=== PATIENT | male | born 1955 | race Caucasian/White ===

== ENCOUNTER 2023-05-25 15:20 | Inpatient (IN) | payer MEDICARE, SELFPAY ==
[2023-05-25] VITALS (16 sets, daily range): BP systolic 98–123; BP diastolic 61–78; PULSE 58–80; RESP 17–28; TEMP 36.6–36.9; O2SAT 94–99; BMI 34.7; BMI 38.0
--- NOTE | 2023-05-25 15:24 | ECG_ITS ---
[facility] Test Date: 2023-05-25 Pat Name: Fabrice Mercado Department: Room: 112 Gender: Male Management Expert: : 1955 Requested By: Effie Espinoza Order Number: [id number] Darline MD: Kunal Gottlieb M.D. Measurements Intervals [place] Rate: 77 P: 45 NE: 180 QRS: -34 QRSD: 173 T: -7 QT: 408 QTc: 463 Interpretive Statements SINUS RHYTHM WITH MARKED SINUS ARRHYTHMIA INDETERMINATE AXIS RIGHT BUNDLE BRANCH BLOCK [120+ ms QRS DURATION, UPRIGHT V1, 40+ ms S IN I/aVL/V4/V5/V6] Compared to ECG 04/01/2015 02:10:15 Indeterminate axis now present Right bundle-branch block now present Sinus bradycardia no longer present Intraventricular conduction delay no longer present Electronically Signed On 05-25-2023 19:01:07 OPERATIONS SUPPORT MANAGER by Kunal Gottlieb M.D. [email or web address]/store/[id number] f
--- NOTE | 2023-05-25 15:29 | W.ED.CHESTPA ---
HPI - Chest Pain General: Chief Complaint: Chest Pain Stated Complaint: STEMI Time Seen by Provider: 05/25/23 15:21 History of Present Illness: 67-year-old man with a history of obesity, hyperlipidemia and hypertension who presents to the emergency room by transfer from another hospital. He had been having some chest pain. He said he had an episode while he was out side chopping wood or he started feeling chest burning. He says today he started to have a burning in his chest and so he went to the emergency room. It was reported that he had a STEMI there and so he was transferred here for cardiology intervention. He has been given Plavix aspirin and statin. He was started on a heparin drip. He said nitro did not really help and made him sick. So has been given no more of that. Chest pain is minimal at this time. No lower extremity swelling. No known cardiac history. He is a non-smoker. Review of Systems Narrative: Constitutional symptoms: Negative except as documented in HPI. Skin symptoms: Negative except as documented in HPI. Eye symptoms: Negative except as documented in HPI. ENMT symptoms: Negative except as documented in HPI. Respiratory symptoms: Negative except as documented in HPI. Cardiovascular symptoms: Negative except as documented in HPI. Gastrointestinal symptoms: Negative except as documented in HPI. Genitourinary symptoms: Negative except as documented in HPI. Musculoskeletal symptoms: Negative except as documented in HPI. Neurologic symptoms: Negative except as documented in HPI. Psychiatric symptoms: Negative except as documented in HPI. Endocrine symptoms: Negative except as documented in HPI. [facility] ED PFSH: Medical History (Updated 05/25/23 @ 15:42 by Effie Rojo MD) HTN (hypertension) Family History Father Cancer Mother Diabetes Social History Smoking and tobacco/nicotine status: former use of tobacco/nicotine Physical Exam Narrative: EXAM NARRATIVE: General: Alert, no acute distress. Skin: Warm, dry. Head: Normocephalic, atraumatic. Neck: Supple, trachea midline. Eye: Extraocular movements are intact. Ears, nose, mouth and throat: mucosa moist. Cardiovascular: Regular, Normal peripheral perfusion. Respiratory: Lungs are clear to auscultation, respirations are non-labored, breath sounds are equal, Symmetrical chest wall expansion. Gastrointestinal: Soft, Nontender, Non distended, Normal bowel sounds. Musculoskeletal: Normal ROM, no deformity. Neurological: Alert and oriented to person, place, time, and situation, No focal neurological deficit observed. Psychiatric: Cooperative, appropriate mood & affect. Course Vital Signs: Vital signs: Vital Signs Temperature 98.3 F 05/25/23 15:28 Pulse Rate 68 05/25/23 15:35 Respiratory Rate 18 05/25/23 15:35 Blood Pressure 123/61 05/25/23 15:35 Pulse Oximetry 98 05/25/23 15:35 Oxygen Delivery Me thod Room Air 05/25/23 15:35 MDM - Chest Pain Medical Decision Making Patient presents by transfer. He has known elevated cardiac markers and EKG changes consistent with a STEMI. Chest pain has improved some. Repeating cardiac markers here. Consultation with cardiology who saw the patient in the emergency room and is taking the patient to the [facility]. Continue the heparin drip here. This is likely an acute coronary syndrome. Lab Data 05/25/23 15:30 05/25/23 15:30 No radiology studies performed this visit Discharge Plan Discharge Patient Disposition: Admitted As Inpatient Clinical Impression: ST elevation (STEMI) myocardial infarction Condition: Stable Prescriptions: No Action metoprolol succinate 100 mg tablet extended release 24 hr 100 mg PO DAILY ibuprofen [Advil] 200 mg tablet 200 mg PO Q6H PRN (Reason: Pain) cetirizine 10 mg capsule 10 mg PO DAILY PRN (Reason: allergies) valsartan-hydrochlorothiazide 160-12.5 mg tablet 1.5 tab PO DAILY Qty: 135 3RF Rx Instructions: patient did not want to change dose of med as BP has been ok at the same dose Referrals: Neel Gautam DO [Primary Care Provider] - Coding Level of Care Code ED Longshore Equipment Operator for Nichole Mustafa
--- NOTE | 2023-05-25 15:35 | PC.NURSE ---
HEPARIN HOLD PER QIANA.
--- NOTE | 2023-05-25 15:37 | XACV_ITS ---
Exam Room: 2 Ht: 183 cm Wt: 119 kg BSA: 2.50 m2 Gender: Male : 1955 Any Known Allergies: No known allergies Exam Priority: Routine Indication(s): - Acute inferior ID Procedure(s): Procedure Description: Diagnostic procedure Procedure Description: PCI procedure Procedure Description: Drug Eluting Coronary Stent Procedure Description: PTCA Procedure Description: Miscellaneous Procedure Description: ACT Procedure Description: Coronary Angiography Darrel JOYNER; Diagnostic Cath Status: Emergency Diagnostic Findings * INDICATION: 67 year old male with past medical history of hypertension was presented with severe substernal and epigastric heartburn. No prior cardiac history. He woke up with significant heartburn and had significant diaphoresis associated with it. This was about 10 hours prior to presentation but chest pain got much worse prior to ER presentation. Went to the emergency room in [facility]. EKG was transmitted to us and we emergently activated Rn Paralegal as patient has right bundle branch block with ST elevations in inferior leads. * Left Anterior Descending has mild luminal irregularities. * Mid Right Coronary Artery: total thrombotic occlusion, LAXMI: 0 flow. This is culprit vessel for ST elevation ID. Distal RCA has another moderate 50% stenosis.. * Proximal Circumflex: severe 75% stenosis, LAXMI: 3 flow. * Left Main has no disease. * First Obtuse Marginal Branch Segment: obstructive 70% stenosis, LAXMI: 3 flow. * Second Obtuse Marginal Branch Segment: obstructive 60% stenosis, LAXMI: 3 flow. * Coronary angiography shows right dominance. PCI Status: Emergency PCI Indication: Immediate PCI for STEMI Interventional Findings * PROCEDURE DETAIL: We engaged RCA with JR4 guide catheter. IV heparin was administered to maintain anticoagulation. 0.014 run-through guidewire was used to cross the occluded segment and was put in distal vessel. We predilated the stenosis with a 2.5 x 12 mm semicompliant balloon. This revealed significant thrombus throughout the vessel. Multiple balloon angioplasties were performed including in distal RCA where there was a moderate 50% stenosis as well. This cleared the thrombus. We then proceeded with placement of a 3.5 x 26 mm resolute Jennifer drug-eluting stent in the mid RCA. As distal RCA had moderate stenosis, we decided to treat medically. Guidewire and guide catheter were removed. Patient left the Rn Paralegal in stable condition. Patient has residual significant proximal left circumflex artery stenosis that will undergo staged PCI in 2-3 weeks. * Mid Right Coronary Artery: 100% stenosis treated with a AB TREK 2.50X12 RX BALLOON, and MDT R JENNIFER 3.5X26 KAYLEEN. 0% residual stenosis, LAXMI: 3 flow. * Distal Right Coronary Artery: 50% stenosis treated with a AB TREK 2.50X12 RX BALLOON. 0% residual stenosis, LAXMI: 3 flow. Conclusions 1. Total thrombotic occlusion of mid RCA s/p successful revascularization with 1 stent.. 2. Severe proximal left circumflex artery stenosis, plan for staged PCI in 2 to 3 weeks. 3. Mid Right Coronary Artery was treated with a Balloon, and Drug Eluting Stent. 4. Distal Right Coronary Artery was treated with a Balloon. Recommendations * Dual antiplatelet therapy with aspirin and Plavix for at least 1 year. * High intensity statin therapy. * Aggrastat gtt for 4 hours as has some distal embolization. * Outpatient cardiology follow in 2 weeks. * Staged PCI of left circumflex artery in 2-3 weeks. Interventional RX Recommendation: PCI w/o planned CABG Diagnostic RX Recommendation: PCI w/o planned CABG Anticoagulation: Heparin Pressures Phase:Rest AO : 105 / 84 ( 96 ) @ 4:07:00 PM 98 / 67 ( 80 ) @ 4:11:00 PM Clinical Evaluation EBL: 5mL-10mL Procedural Details Pre-Procedure Time Out. Identified patient by full name and date of as verbalized by the patient/guarantor. Does the consent match the physician's order: N/A Emergent; Informed Consent not obtained due to time critical life threat. Accurate & Complete Informed Consent: N/A Emergent; Informed Consent not obtained due to time critical life threat. Inpatient/Outpatient History & Physical on Chart: N/A Emergent; Informed Consent not obtained due to time critical life threat. If H&P is completed, is and addenduem needed: N/A Emergent; Informed Consent not obtained due to time critical life threat; If yes, is the addendum complete: N/A Emergent; Informed Consent not obtained due to time critical life threat. Visualize and Verify Site with Patient/Guarantor: N/A. Relevant Radiology Images available: N/A Emergent; Informed Consent not obtained due to time critical life threat. Pre-op teaching completed and patient verbalized understanding. The risks, benefits, and alternatives of sedation and/or procedure were discussed by physician. The patient agrees to continue. Procedure started. [facility] Clinical Fraility Score: 3: Managing Well. Rn Paralegal Indications: ACS <= 24 hours. Chest Pain Symptom Assessment: Typical Angina Symptoms. Cardiovascular Instability: Yes, if yes, Persistant Ischemic Symptoms. Correct patient, site and procedure confirmed by cath team. Current diagnosis: STEMI. PERRLA. Strong, equal hand shade classifier bilaterally. Lungs clear x 5 lobes. IV Site on Arrival: 18 gauge in the right anticubital. IV Site on Arrival: 18 gauge in the left anticubital. IV Fluids: 0.9% NaCl at KVO. 0 mL infused prior to laborer driver. Oxygen started at 2liters/min via nasal canula. right groin was prepped with chloroprep then draped in the usual sterile fashion. right radial was prepped with chloroprep then draped in the usual sterile fashion. Baseline sample Acquired. HR: 58 BPM. Physician notified. Patient's family in the laborer driver waiting room. Equipment: 6F - Radial. Cardiac Cath Pack. ACIST Manifold Kit Model BT 2000. Heparinized Saline (2 units/mL), 1000 mL bag. Physician arrived. Physician scrubbed in. Immediate Pre-Procedure Time Out. Correct Patient: N/A Emergent; Informed Consent not obtained due to time critical life threat; Correct Procedure: N/A Emergent; Informed Consent not obtained due to time critical life threat; Correct Site: N/A Emergent; Informed Consent not obtained due to time critical life threat; Correct Patient Position: N/A Emergent; Informed Consent not obtained due to time critical life threat; Correct Supplies: N/A Emergent; Informed Consent not obtained due to time critical life threat; Dried Flammable Prep: N/A Emergent; Informed Consent not obtained due to time critical life threat; Blood Products Available: N/A Emergent; Informed Consent not obtained due to time critical life threat;. Lidocaine 1% infiltrated to the right radial. Arterial access obtained. 6 italian JR 4 guide catheter was inserted over the exchange J wire. Add inventory: Endoflator, co-maritime pilot, Runthrough guidewire. Inflation number : 1 A AB TREK 2.50X12 RX BALLOON was prepped and advanced across the Mid RCA , then inflated to 12 ALISSA for 0:20 seconds. Inflation number: 2 The AB TREK 2.50X12 RX BALLOON was reinflated across the Mid RCA, to 12 ALISSA for 0:08 seconds. Results checked. Inflation number: 1 The AB TREK 2.50X12 RX BALLOON was reinflated across the Dist RCA, to 12 ALISSA for 0:08 seconds. Balloon out. Results checked. Inflation Number : 3 A MDFredy R JENNIFER 3.5X26 KAYLEEN -Lot Number# [id number] was prepped and advanced across the Mid RCA. The stent was deployed at 12 ALISSA for 0:17 seconds. Exp. 2024-01-30. Stent balloon out over wire. Results checked. ACT drawn. Out of range high. Will redraw. Wire out. Guide catheter out over the exchange J wire. Critical Troponin of 1079 received from the lab. Dr. Gottlieb notified with no new orders. A 5 italian TIG catheter in over the exchange J wire. Multiple views taken of left coronary artery. A 5 italian JR4 catheter in over the exchange J wire. Multiple views taken of right coronary artery. PCI Indication : Immediate PCI for STEMI. Catheter removed over the exchange J wire. ACT drawn. Results 275 seconds. Therapeutic limits - pre-heparin administration 90-150 seconds and monitoring heparin during a vascular procedure >250 seconds. A TR Band was successful obtaining hemostatsis at the Right Radial artery insertion site. Post Procedure: right radial pulse 3+. PERRLA. Strong, equal hand shade classifier bilaterally. No VTE prophylaxis required. Medication's Wasted: Other = Fentanyl 50 mcg. Medication's Wasted: Other = Versed 1 mg. Medication's Wasted: Nitro = 49.8 mg. Medication's Wasted: Lidocaine 1% = 2 mL. Medication's Wasted: Other = Cardene 24.5mg. Medication's Wasted: Heparin = 3000 Units. Total IV fluids: 270 mL. PCI Indication: STEMI. Post-op diagnosis: Severe mid RCA stenosis s/p PCI with PTCA of the distal RCA. Severe Proximal CX and OM1 disease. Will stage procedure for that intervention. Complications: none. Estimated blood loss: 5mL-10mL. Responsiveness - Normal response to verbal stimuli; alert and oriented, PERRLA. Airway - Unaffected, no intervention required; spontaneous ventilation. Circulation: W/N/L, pulses unchanged. Nausea/Vomiting: No. Vital chart was stopped. Procedure completed. Patient transferred by wheelchair to 1st floor. Access Site Site: Right Radial artery Sheath Size: 6 Fr Hemostasis Method: TR Band Hemostasis Success: Successful Procedure Medications Start: 3:54 PM Stop: 3:54 PM Medication: Versed Amount: 1 mg Route: I.V. Start: 3:54 PM Stop: 3:54 PM Medication: Fentanyl Amount: 50 mcg Route: I.V. Start: 3:57 PM Stop: 3:57 PM Medication: Heparin Amount: 6000 units Route: I.V. Start: 4:02 PM Stop: 4:02 PM Medication: Heparin Amount: 2000 units Route: I.V. Start: 4:03 PM Stop: 4:03 PM Medication: Nitrogylcerin Amount: 200 mcg Route: I.C. Start: 4:10 PM Stop: 4:10 PM Medication: Aggrastat 12.5 mg/250 mL Amount: 60 ml Route: I.V. bolus Start: 4:10 PM Stop: 4:10 PM Medication: Aggrastat 12.5 mg/250 mL Amount: 21.6 ml/hr Route: I.V. drip Start: 4:11 PM Stop: 4:11 PM Medication: Cardene Amount: 500 mcg Route: I.C. I, the attending physician, have reviewed and verified all procedure medications. Yes, all medications given per verbal order Report Signatures Finalized by Kunal Gottlieb MD on 05/29/2023 02:39 PM
[2023-05-25 15:40] LABS: Basophils % 0.3 %; Eosinophils % 0.3 %; Hematocrit 44.8 % (37-53); Lymphocytes # 1.1 10^3/uL (0.8-4.8); Lymphocytes % 9.8 %; Mean Corpuscular HGB Conc 33.7 g/dL (30-55); Mean Corpuscular Hemoglobin 30.7 pg (27-33); Mean Corpuscular Volume 91.1 fl (82-101); Mean Platelet Volume 10.8 fL (7.4-10.4); Monocytes % 8.7 %; Neutrophils # 9.17 10^3/uL (1.8-7.7); Neutrophils % 80.5 %; Nucleated Red Blood Cells % 0 %; Platelet Count 188 10^3/cmm (157-399); Red Blood Count 4.92 10^6/uL (3.85-5.65); White Blood Count 11.38 10^3/uL (3.29-11.43)
--- NOTE | 2023-05-25 15:41 | P.HP_ITS ---
Providers/Chief Complaint 2 Admitting Physician: Kunal Gottlieb MD/ Cardiology Primary Care Provider: Neel Gautam DO Chief Complaint: STEMI History of Present Illness Fabrice Mercado is a 67 year old male with past medical history of hypertension was presented with severe substernal and epigastric heartburn. No prior cardiac history. He woke up with significant heartburn and had significant diaphoresis associated with it. This was about 10 hours prior to presentation but chest pain got much worse prior to ER presentation. Went to the emergency room in [facility]. Initial troponins from outside hospital level of 492. EKG was transmitted to us and we emergently activated Dry Room Attendant as patient has right bundle branch block with ST elevations in inferior leads. Review of Systems 2 Narrative: CONSTITUTIONAL: No fever chills weight loss or gain or night sweats. [] HEENT: Normocephalic, atraumatic.[] RESPIRATORY: No cough, sputum, hemoptysis or wheezing.[] CARDIOVASCULAR: Has chest pain GI: no nausea vomiting diarrhea. [] BEAM DYER RECESSED VAT: No numbness, tingling, weakness or loss of function in any part of the body. [] MUSCULOSKELETAL: No knee or joint pain or rashes. [] Medications/Allergies Home Medications Medication Instructions Recorded Confirmed Last Taken Type cetirizine 10 mg capsule 10 mg PO DAILY PRN allergies 01/22/20 05/25/23 Unknown History ibuprofen 200 mg tablet (Advil) 200 mg PO Q6H PRN Pain 01/22/20 05/25/23 Unknown History metoprolol succinate 100 mg 100 mg PO DAILY 01/22/20 05/25/23 Unknown History tablet,extended release 24 hr valsartan 160 1.5 tab PO DAILY #135 tabs 09/04/20 05/25/23 Unknown Rx mg-hydrochlorothiazide 12.5 mg tablet Allergies Allergy/AdvReac Type Severity Reaction Status Date / Time No Known Allergies Allergy Verified 05/25/23 15:30 PFSH Acute 2 PFSH: Medical History HTN (hypertension) Family History Father Cancer Mother Diabetes Social History Smoking and tobacco/nicotine status: former use of tobacco/nicotine Vitals/I&O/Wt Last Vital Signs Temp 98.3 F 05/25/23 15:28 Pulse 68 05/25/23 15:35 Resp 18 05/25/23 15:35 BP 123/61 05/25/23 15:35 Pulse Ox 98 05/25/23 15:35 O2 Del Method Room Air 05/25/23 15:35 Weight last 48 hrs Weight 263 lb Physical Exam 2 Narrative: GENERAL: Patient is alert, awake and oriented x3. [] NECK: No jugular vein distension. [] HEENT: No cyanosis. No icterus. No pallor. [] HEART: Regular S1 and S2. No murmur, rub or gallop. [] LUNGS: Clear to auscultate bilaterally. [] CENTRAL NERVOUS SYSTEM: Grossly nonfocal. [] EXTREMITIES: Lower extremities with 1+ edema bilaterally. Data 05/25/23 15:30 05/25/23 15:30 A&P Assessment and plan (1) ST elevation (STEMI) myocardial infarction: (2) HTN (hypertension): Qualifiers: Hypertension type: essential hypertension Qualified Code(s): I10 - Essential (primary) hypertension Plan Patient has presented with acute inferior wall ST elevation ME. Cardiac Dry Room Attendant has been activated. Risks and benefits of procedure have been discussed with the patient. Aspirin, Plavix bolus given. IV heparin bolus given. We will order echocardiogram. Attestations 2 Medical Necessity Statement*: Care expected to cross 2 midnights. Patient has presented with Acute inferior wall ST elevation ME. Going to drop crew laborer for emergent coronary angiogram and PCI Coding Level of Care Code Acute Code for [facility] Diagnoses ST elevation (STEMI) myocardial infarction I21.3 Essential hypertension I10 Hypertension type: essential hypertension
--- NOTE | 2023-05-25 15:41 | PC.PHAR ---
PT UNABLE TO VERIFY MEDICATIONS. CALLED [facility] SPOKE WITH LUIS A AND VERIFIED RX MEDICATIONS. 05/25/23
[2023-05-25 16:07] LABS: Troponin(5th) Baseline 1079 ng/L (0-15)
[2023-05-25 16:36] LABS: Alanine Aminotransferase 47 U/L (0-41); Albumin Level 3.9 g/dL (3.5-5.2); Alkaline Phosphatase 71 U/L (40-130); Anion Gap 14.2 (5-19); Aspartate Amino Transferase 95 U/L (0-40); Blood Urea Nitrogen 14 mg/dL (8-23); Calcium 9.3 mg/dL (8.5-10.5); Carbon Dioxide 25 mmol/L (22-29); Chloride 100 mmol/L (98-107); Chol HDL Ratio 5.39 mg/dL (1.0-5.00); Cholesterol 167 mg/dL (0-200); Globulin 2.5 g/dL (1.3-4.6); Glomerular Filtration Rate 74.3 mL/min (90-130); Glucose 173 mg/dL (65-115); HDL Cholesterol 31 mg/dL (60-100); LDL Cholesterol Calculated 117 mg/dL (50-129); Osmolality Calculated 285 mOsm/kg (285-295); Potassium 4.2 mmol/L (3.5-5.1); Sodium 135 mmol/L (136-145); Total Bilirubin 0.5 mg/dL (0.15-1.2); Total Protein 6.4 g/dL (6.6-8.7); Triglycerides 96 mg/dL (0-150); VLDL Cholestrol Calculation 19 mg/dL (0-30)
--- NOTE | 2023-05-25 17:24 | ECG_ITS ---
[facility] Test Date: 2023-05-25 Pat Name: Fabrice Mercado Department: Room: 112 Gender: Male Jig Operator: : 1955 Requested By: Effie Espinoza Order Number: [id number] Gregorio MD: Kunal Gottlieb M.D. Measurements Intervals [place] Rate: 58 P: 64 MS: 203 QRS: -55 QRSD: 167 T: -29 QT: 434 QTc: 428 Interpretive Statements SINUS BRADYCARDIA RIGHT BUNDLE BRANCH BLOCK [120+ ms QRS DURATION, UPRIGHT V1, 40+ ms S IN I/aVL/V4/V5/V6] INFERIOR MYOCARDIAL INFARCTION , OF INDETERMINATE AGE [40+ ms Q WAVE AND/OR ST/T ABNORMALITY IN II/aVF] MODERATE T-WAVE ABNORMALITY, CONSIDER LATERAL ISCHEMIA [-0.1+ mV T-WAVE IN I/aVL/V5/V6] Compared to ECG 05/25/2023 15:26:32 Myocardial infarct finding now present T-wave abnormality now present Possible ischemia now present Sinus rhythm no longer present Sinus arrhythmia no longer present Indeterminate axis no longer present Electronically Signed On 05-25-2023 19:01:53 RADIOTELEPHONE OPERATOR by Kunal Gottlieb M.D. [id number]
[2023-05-25 17:57] LABS: Troponin 5 2HR 9226 ng/L (0-15)
[2023-05-25 17:58] LABS: Troponin 5 2HR Delta 8147 ABS# (0-10)
[2023-05-25] MEDS: tirofiban 5 MG/100 ML PREMIX 21.6 MG IV (18:07)
[2023-05-25] MEDS: sodium chloride 0.9% 1,000 ML 100 ML IV (18:07)
--- NOTE | 2023-05-25 18:11 | PC.NURSE ---
Patient's metoprolol 25 mg was held at 1800 due to HR of 58 and BP of 114/78.
--- NOTE | 2023-05-25 18:12 | USCV_ITS ---
Fabrice Mercado Age: 67 Gender: M : 1955 Exam Date: 05/25/2023 20:48 Ordering Phys: Kunal Gottlieb M.D ([email or web address]) Technologist: ИВАН [place] [facility] [place]: STEMI -- post cardiac catheterization, one cardiac stent. BP: 103 / 73 HR: 58 Rhythm: Sinus Technical Quality: Adequate MEASUREMENTS (Male / Female) Normal Values 2D ECHO LV Diastolic Diameter PLAX 3.6 cm 4.2 - 5.9 / 3.9 - 5.3 cm LV Systolic Diameter PLAX 2.7 cm IVS Diastolic Thickness 1.6 cm 0.6 - 1.0 / 0.6 - 0.9 cm IVS Systolic Thickness 2.4 cm LVPW Diastolic Thickness 2.2 cm 0.6 - 1.0 / 0.6 - 0.9 cm LVPW Systolic Thickness 1.9 cm LVOT Diameter 2.2 cm LV Ejection Fraction 2D Teich 50.2 % LV Ejection Fraction MOD 2C 55.4 % LV Ejection Fraction 2C AL 56.4 % LA Diameter 3.3 cm LA Width 4.3 cm LA Height 5.9 cm RA Width 5.0 cm RA Height 5.2 cm Aorta at Sinotubular Diameter 4.0 cm IVC Diameter 2.3 cm M-MODE Aortic Annulus Diameter 4.5 cm LA Ao Ratio MM 0.7 MV E Point Septal Separation 0.9 cm DOPPLER AV Peak Velocity 119.0 cm/s LVOT Peak Velocity 93.0 cm/s AV Area Cont Eq vti 2.8 cm squared AV Area Cont Eq pk 2.9 cm squared MV Peak Velocity 89.0 cm/s MV Area PHT 1.7 cm squared Mitral E to A Ratio 0.6 MV E' Velocity 24.5 cm/s Mitral E to MV E' Ratio 9.7 Mitral E to LV E' Lateral Ratio 8.5 Mitral E to LV E' Septal Ratio 11.1 TV Peak E Velocity 58.0 cm/s PV Peak Velocity 68.0 cm/s RV Acceleration Time 0.1 s RV Ejection Time 0.4 s RV AcT/ET 0.2 FINDINGS Left Ventricle Left ventricle is normal in size. LV systolic function is normal with EF of 50 to 55%. Moderate to severe hypokinesis of inferior wall. Grade 1 diastolic dysfunction Right Ventricle Normal in size and function Right Atrium Normal in size Left Atrium Normal in size Mitral Valve Moderate mitral annular calcification. Aortic Valve Structurally normal aortic valve. No significant stenosis or regurgitation. Tricuspid Valve Mild tricuspid regurgitation. Insufficient TR jet to calculate RVSP Pulmonic Valve Not well visualized. Trace pulmonic regurgitation. Pericardium Normal Aorta Dilated aortic root and ascending aorta IVC Dilated CONCLUSIONS LV systolic function is normal with EF of 50-55%. Moderate to severe hypokinesis of inferior wall. Grade 1 diastolic dysfunction Mild tricuspid regurgitation Trace pulmonic regurgitation Dilated aortic root and ascending aorta No comparison studies are available. uKnal Gottlieb MD (Electronically Signed) Final Date: 26 May 2023 16:08 S
[2023-05-25] MEDS: atorvastatin 40 mg Tablet 80 MG PO (20:39)
--- NOTE | 2023-05-25 20:49 | PC.NURSE ---
Initiated TR band removal at 1900 per protocol removing 2ml of air every 10-15min until band removed at this time. No s/s of bleeding or hematoma formation. Covered site with bio-occlusive dressing. Instructed patient on site care and restrictions. Patient verbalized complete understanding. Will continue to monitor.
[2023-05-25 22:01] LABS: Troponin 5 6HR 6665 ng/L (0-15)
[2023-05-25 22:02] LABS: Troponin 5 6HR Delta 5586 ng/L (0-12)
[2023-05-26] VITALS (7 sets, daily range): BP systolic 105–122; BP diastolic 70–80; PULSE 68–79; RESP 16–34; TEMP 36.7–37.5; O2SAT 93–97
[2023-05-26 04:51] LABS: Basophils % 0.4 %; Eosinophils % 0.3 %; Hematocrit 41.4 % (37-53); Lymphocytes % 9.2 %; Mean Corpuscular HGB Conc 33.8 g/dL (30-55); Mean Corpuscular Hemoglobin 30.8 pg (27-33); Mean Corpuscular Volume 91.2 fl (82-101); Mean Platelet Volume 11.2 fL (7.4-10.4); Monocytes # 1.1 10^3/uL (0.2-0.9); Monocytes % 9.6 %; Neutrophils # 8.76 10^3/uL (1.8-7.7); Neutrophils % 80.1 %; Nucleated Red Blood Cells % 0 %; Platelet Count 146 10^3/cmm (157-399); Red Blood Count 4.54 10^6/uL (3.85-5.65); Red Cell Distribution Width 12.3 % (12.1-15.1); White Blood Count 10.93 10^3/uL (3.29-11.43)
[2023-05-26 05:18] LABS: Blood Urea Nitrogen 16 mg/dL (8-23); Carbon Dioxide 24 mmol/L (22-29); Chloride 103 mmol/L (98-107); Glomerular Filtration Rate 74.3 mL/min (90-130); Glucose 137 mg/dL (65-115); Osmolality Calculated 287 mOsm/kg (285-295); Sodium 137 mmol/L (136-145)
[2023-05-26] MEDS: metoprolol tartrate 50 mg Tablet 25 MG PO ×2 (08:52→17:18)
[2023-05-26] MEDS: aspirin 81 mg EC Tablet PO (08:53)
[2023-05-26] MEDS: clopidogrel 75 mg Tablet PO (08:53)
--- NOTE | 2023-05-26 10:37 | PC.CHAP ---
Pastoral Care Encounter/Spiritual Assessment Type of Contact [] Declined oil paint shader visit [] Patient/Family/Request visit [] Outpatient visit [] Follow-up visit [] Physician referral [] Code/Alert [x] Routine visit [] Staff referral [] Actively dying [] Patient sleeping [] Family support [] [] Out of room [] Palliative care [] [x] Receiving care in room [] Pre-surgical visit [] Trauma [] Long length of stay [] ICU visit [] Other: Relational/Emotional Strength [x] Patient feels connected with others/family/visitors/staff [] Distress [] Loneliness/isolation [] Abandonment Spirituality of Patient [x] Person of Mirta [] Attends Jewish of their Mirta [x] Believes in Prayer [] Reads Bible or Denominational materials [] There are Spiritual issues to be addressed Jr. Systems Administrator Interventions [x] Prayer [x] Active listening [x] Non-anxious presence [x] Spiritual/emotional support [] Crisis/trauma care [x] Spiritual counseling [] Bereavement support [] Provided bereavement packet [] Provided Bible/devotional materials [] Provided toy/stuffed animal, coloring book to patient or family member [] Provided Communion [] Anointing/Riley [] Salvation [x] Completed spiritual assessment [] Other: Impact on Illness or Injury [] Angry [] Fearful [] Anxious [] Often cries [] Exhaustion [] Unable to work [] Unable to attend scientologist [] Unable to walk/stand [] Unable to read [] Unable to drive [] Unable to eat/drink [] Unable to sleep [] Unable to be with family [] Patient intubated [] Other: Summary waiting on results of test and what needs to be done before he can go home Time spent with patient 10 mins
--- NOTE | 2023-05-26 11:59 | P.PN_ITS ---
Subjective 2 Subjective: Patient had coronary angiogram yesterday that showed total occlusion of RCA. He underwent successful revascularization with 1 stent. This morning no chest pain. He is feeling well. Vitals/I&O/Wt Last Vital Signs Temp 98.1 F 05/26/23 07:55 Pulse 75 05/26/23 07:55 Resp 16 05/26/23 07:55 BP 113/77 05/26/23 07:55 Pulse Ox 95 05/26/23 07:55 O2 Del Method Room Air 05/26/23 07:55 05/25/23 05/26/23 05/26/23 22:59 06:59 14:59 Intake Total 55.44 / 55.44 1000 / 1055.44 240 / 240 Balance 55.44 / 55.44 1000 / 1055.44 240 / 240 Weight last 48 hrs Weight 263 lb Weight 288 lb 8 oz Weight 263 lb Physical Exam 2 Narrative: GENERAL: Patient is alert, awake and oriented x3. [] NECK: No jugular vein distension. [] HEENT: No cyanosis. No icterus. No pallor. [] HEART: Regular S1 and S2. No murmur, rub or gallop. [] LUNGS: Clear to auscultate bilaterally. [] CENTRAL NERVOUS SYSTEM: Grossly nonfocal. [] EXTREMITIES: Lower extremities with 1+ edema bilaterally. Data 05/26/23 04:25 05/26/23 04:25 A&P Assessment and plan (1) ST elevation (STEMI) myocardial infarction: (2) HTN (hypertension): Qualifiers: Hypertension type: essential hypertension Qualified Code(s): I10 - Essential (primary) hypertension Plan Patient had PCI of RCA yesterday. He also has left circumflex artery/OM disease. Will be staged and 3 to 4 weeks. Continue aspirin and Plavix. Echo shows normal LV systolic function. High intensity statin therapy. Continue metoprolol. We will observe patient for today on telemetry. Likely discharge tomorrow. Attestations 2 Medical Necessity Statement*: Care expected to cross 2 midnights. He had PCI of RCA yesterday. We will observe him for today and likely discharge tomorrow. Coding Level of Care Code Acute Code for [facility] Fwd Diagnoses ST elevation (STEMI) myocardial infarction I21.3 Essential hypertension I10 Hypertension type: essential hypertension
[2023-05-26] MEDS: naproxen 500 mg Tablet 250 MG PO (17:54)
[2023-05-26] MEDS: atorvastatin 40 mg Tablet 80 MG PO (20:45)
[2023-05-27] VITALS: BP 96/71; PULSE 73; RESP 24; TEMP 37.7; O2SAT 93
[2023-05-27 04:00] VITALS: BP 117/85; PULSE 84; RESP 15; TEMP 36.5; O2SAT 95
[2023-05-27 04:09] LABS: Basophils % 0.4 %; Eosinophils % 0.4 %; Hematocrit 39.4 % (37-53); Lymphocytes % 9.8 %; Mean Corpuscular Hemoglobin 31.5 pg (27-33); Mean Corpuscular Volume 92.7 fl (82-101); Mean Platelet Volume 10.9 fL (7.4-10.4); Monocytes # 1.4 10^3/uL (0.2-0.9); Monocytes % 13.9 %; Neutrophils # 7.67 10^3/uL (1.8-7.7); Nucleated Red Blood Cells % 0 %; Platelet Count 133 10^3/cmm (157-399); Red Blood Count 4.25 10^6/uL (3.85-5.65); Red Cell Distribution Width 12.3 % (12.1-15.1); White Blood Count 10.22 10^3/uL (3.29-11.43)
[2023-05-27 04:32] LABS: Anion Gap 11.9 (5-19); Blood Urea Nitrogen 21 mg/dL (8-23); Carbon Dioxide 26 mmol/L (22-29); Chloride 102 mmol/L (98-107); Glomerular Filtration Rate 74.3 mL/min (90-130); Glucose 137 mg/dL (65-115); Osmolality Calculated 287 mOsm/kg (285-295); Potassium 3.9 mmol/L (3.5-5.1); Sodium 136 mmol/L (136-145)
[2023-05-27 06:05] VITALS: PULSE 73
--- NOTE | 2023-05-27 07:36 | PM.DCS ---
Discharge Providers Date of Admission: 05/25/23 15:45 Date of Discharge: May 27, 2023 Attending Provider at Admission: Kunal Gottlieb M.D Attending Provider at Discharge: Kunal Gottlieb M.D Primary Care Provider: Neel Gautam DO Diagnoses at Discharge Discharge Diagnosis (1) ST elevation (STEMI) myocardial infarction: Status: Inactive (2) HTN (hypertension): Status: Acute Qualifiers: Hypertension type: essential hypertension Qualified Code(s): I10 - Essential (primary) hypertension Reason for Visit Reason for Visit: STEMI Brief History: 67 year old male with past medical history of hypertension was presented with severe substernal and epigastric heartburn. No prior cardiac history. He woke up with significant heartburn and had significant diaphoresis associated with it. This was about 10 hours prior to presentation but chest pain got much worse prior to ER presentation. Went to the emergency room in [facility]. Initial troponins from outside hospital level of 492. EKG was transmitted to us and we emergently activated Electric Motor Assembler And Tester as patient has right bundle branch block with ST elevations in inferior leads. Hospital Course Hospital Course Coronary angiogram revealed total thrombotic occlusion of mid RCA. He underwent successful revascularization with 1 stent. He also had significant proximal left circumflex artery stenosis. Plan for staged PCI in 2 to 3 weeks. Echocardiogram revealed normal LV systolic function with hypokinesis of the inferior wall. Patient stayed stable during hospitalization and was discharged home in a stable condition on dual antiplatelet therapy, statin, lisinopril and metoprolol. We will schedule him for staged PCI of left circumflex artery in 2 to 3 weeks. Physical Exam Narrative: GENERAL: Patient is alert, awake and oriented x3. [] NECK: No jugular vein distension. [] HEENT: No cyanosis. No icterus. No pallor. [] HEART: Regular S1 and S2. No murmur, rub or gallop. [] LUNGS: Clear to auscultate bilaterally. [] CENTRAL NERVOUS SYSTEM: Grossly nonfocal. [] EXTREMITIES: Lower extremities with 1+ edema bilaterally. Discharge Data Studies Completed and Pending Completed Studies During Hospitalization Category Date Time Status CV. echo complete* [id number] Routine Ultrasound 05/25/23 18:12 Completed Pending at discharge Category Date Time Status INNERSOLE MAKER request for service Stat Exams 05/25/23 15:37 Taken Basic Metabolic Panel AM LABS Lab 05/28/23 04:00 Ordered Complete Blood Count w/Auto AM LABS Lab 05/28/23 04:00 Ordered Laboratory Results WBC 10.22 10^3/uL (3.29-11.43) 05/27/23 03:50 RBC 4.25 10^6/uL (3.85-5.65) 05/27/23 03:50 Hgb 13.40 g/dL (11.27-16.99) 05/27/23 03:50 Hct 39.4 % (37-53) 05/27/23 03:50 MCV 92.7 fl (82-101) 05/27/23 03:50 MCH 31.5 pg (27-33) 05/27/23 03:50 MCHC 34.0 g/dL (30-55) 05/27/23 03:50 RDW 12.3 % (12.1-15.1) 05/27/23 03:50 Plt Count 133 10^3/cmm (157-399) L 05/27/23 03:50 MPV 10.9 fL (7.4-10.4) H 05/27/23 03:50 Neut % (Auto) 75.0 % 05/27/23 03:50 Lymph % (Auto) 9.8 % 05/27/23 03:50 [place]oun % (Auto) 13.9 % 05/27/23 03:50 Eos % (Auto) 0.4 % 05/27/23 03:50 Baso % (Auto) 0.4 % 05/27/23 03:50 Neut # (Auto) 7.67 10^3/uL (1.8-7.7) 05/27/23 03:50 Lymph # (Auto) 1.0 10^3/uL (0.8-4.8) 05/27/23 03:50 [place]oun # (Auto) 1.4 10^3/uL (0.2-0.9) H 05/27/23 03:50 Eos # (Auto) 0.0 10^3/uL (0.0-0.8) 05/27/23 03:50 Baso # (Auto) 0.0 10^3/uL (0.0-0.1) 05/27/23 03:50 Nucleated RBC % (auto) 0 % 05/27/23 03:50 Nucleated RBCs # 0.0 /100WBC 05/27/23 03:50 Sodium 136 mmol/L (136-145) 05/27/23 03:50 Potassium 3.9 mmol/L (3.5-5.1) 05/27/23 03:50 Chloride 102 mmol/L (98-107) 05/27/23 03:50 Carbon Dioxide 26 mmol/L (22-29) 05/27/23 03:50 Anion Gap 11.9 (5-19) 05/27/23 03:50 BUN 21 mg/dL (8-23) 05/27/23 03:50 Creatinine 1.0 mg/dL (0.7-1.2) 05/27/23 03:50 GFR Calculation 74.3 mL/min (90-130) L 05/27/23 03:50 Glucose 137 mg/dL (65-115) H 05/27/23 03:50 Calculated Osmolality 287 mOsm/kg (285-295) 05/27/23 03:50 Calcium 9.0 mg/dL (8.5-10.5) 05/27/23 03:50 Total Bilirubin 0.5 mg/dL (0.15-1.2) 05/25/23 15:30 AST 95 U/L (0-40) H 05/25/23 15:30 ALT 47 U/L (0-41) H 05/25/23 15:30 Alkaline Phosphatase 71 U/L (40-130) 05/25/23 15:30 Troponin T Baseline 1079 ng/L (0-15) H* 05/25/23 15:30 Troponin T 120 Minute 9226 ng/L (0-15) H 05/25/23 17:19 Delta Troponin T 8147 ABS# (0-10) H* 05/25/23 17:19 Troponin T Hi Sens 6Hr 6665 ng/L (0-15) H 05/25/23 21:30 Troponin T Hi Sens 6Hr Delta 5586 ng/L (0-12) H* 05/25/23 21:30 Total Protein 6.4 g/dL (6.6-8.7) L 05/25/23 15:30 Albumin 3.9 g/dL (3.5-5.2) 05/25/23 15:30 Globulin 2.5 g/dL (1.3-4.6) 05/25/23 15:30 Triglycerides 96 mg/dL (0-150) 05/25/23 15:30 Cholesterol 167 mg/dL (0-200) 05/25/23 15:30 LDL Cholesterol, Calc 117 mg/dL (50-129) 05/25/23 15:30 Total VLDL Cholesterol 19 mg/dL (0-30) 05/25/23 15:30 HDL Cholesterol 31 mg/dL (60-100) L 05/25/23 15:30 Cholesterol/HDL Ratio 5.39 mg/dL (1.0-5.00) H 05/25/23 15:30 Vitals Last Vital Signs Temp 97.7 F 05/27/23 04:00 Pulse 73 05/27/23 06:05 Resp 15 05/27/23 04:00 BP 117/85 05/27/23 04:00 Pulse Ox 95 05/27/23 04:00 O2 Del Method Room Air 05/27/23 04:00 Discharge Plan Discharge Patient Disposition: Home Condition: Stable Prescriptions: New atorvastatin 40 mg Tablet 80 mg PO BEDTIME Qty: 90 3RF clopidogrel 75 mg Tablet 75 mg PO DAILY Qty: 90 3RF aspirin 81 mg Tablet,Delayed Release (Dr/Ec) 81 mg PO DAILY Qty: 90 3RF metoprolol tartrate 50 mg Tablet 25 mg PO BID Qty: 120 3RF nitroglycerin 0.4 mg Tablet, Sublingual 0.4 mg sublingual Q5M PRN (Reason: Chest Pain) Qty: 30 1RF lisinopril 2.5 mg Tablet 2.5 mg PO DAILY Qty: 90 3RF Continued cetirizine 10 mg capsule 10 mg PO DAILY PRN (Reason: allergies) Discontinued metoprolol succinate 100 mg tablet extended release 24 hr 100 mg PO DAILY ibuprofen [Advil] 200 mg tablet 200 mg PO Q6H PRN (Reason: Pain) valsartan-hydrochlorothiazide 160-12.5 mg tablet 1.5 tab PO DAILY Qty: 135 3RF Rx Instructions: patient did not want to change dose of med as BP has been ok at the same dose Discharge Orders: Discharge Order (Routine); Ordered 05/27/23 Ordered By: Kunal Gottlieb Referrals: Gottlieb,Kunal, M.D [Physician] - (Your Dr. Gottlieb follow up appointment will be scheduled during your Emily Lopez appointment. Thank you.) Emily Lopez, MONI [Nurse Practitioner] - 06/06/23 2:30 pm Neel Gautam DO [Staff Physician] - 06/07/23 2:30 pm Discharge Diet: Cardiac Discharge Activity: Increase activity as tolerated Patient Instructions: Metoprolol (By mouth) (Lopressor, Toprol XL), Nitroglycerin (By mouth) (Nitro-Time), Lisinopril (By mouth) (Prinivil, Zestril), Aspirin (By mouth) ([place] Extra Strength, [facility] Aspirin [facility],..., Atorvastatin (By mouth) (Lipitor, Atorvaliq), Clopidogrel (By mouth) (Plavix), Opioid Safety, Post Angiogram Home Care Instructions, Post Heart Attack Stoplight Discharge Attestations Time Spent in Discharge Care*: greater than 30 min Quality Metrics Clinical Quality Measures [ Acute Myocardial Infaction { Clinical Trial Participant: No; Contraindication to aspirin: None; Aspirin prescribed; Contraindication to statin: None; Statin prescribed; Contraindication to PCI: None; PCI performed;}] Coding Level of Care Code Acute Code for [facility] Diagnoses ST elevation (STEMI) myocardial infarction I21.3 Essential hypertension I10 Hypertension type: essential hypertension
[2023-05-27 08:43] VITALS: BP 115/82; PULSE 82; RESP 30; TEMP 36.8; O2SAT 94
[2023-05-27] MEDS: metoprolol tartrate 50 mg Tablet 25 MG PO (09:16)
[2023-05-27] MEDS: aspirin 81 mg EC Tablet PO (09:17)
[2023-05-27] MEDS: clopidogrel 75 mg Tablet PO (09:17)
[2023-05-27] MEDS: lisinopril 2.5 mg Tablet PO (09:29)
[2023-05-27 09:36] VITALS: BP 115/82; PULSE 82; RESP 30; TEMP 36.8; O2SAT 94
== END 2023-05-27 10:00 | disposition home or self-care (01) | DRG 322 ==
LOC: ER 15:32 → CCL 15:37 → CSU 15:45
PROVIDERS: Admitting Provider Internal Medicine; Emergency Provider Emergency Medicine; PCP Electrodiagnostic Medicine; Visit Provider Internal Medicine
PROC: 027034Z Dilation of Coronary Artery, One Artery with Drug-eluting Intraluminal Device, Percutaneous Approach (ICD-10-PCS; principal; 2023-05-25 15:45)
PROC: 027034Z Dilation of Coronary Artery, One Artery with Drug-eluting Intraluminal Device, Percutaneous Approach (ICD-10-PCS; 2023-05-25 15:45)
DX: I21.19 ST elevation (STEMI) myocardial infarction involving other coronary artery of inferior wall (principal); Z68.41 Body mass index [BMI] 40.0-44.9, adult; E78.5 Hyperlipidemia, unspecified; I10 Essential (primary) hypertension; I25.10 Atherosclerotic heart disease of native coronary artery without angina pectoris; I45.10 Unspecified right bundle-branch block; Z87.891 Personal history of nicotine dependence; E66.9 Obesity, unspecified
CPT/HCPCS: 36415; 80048; 80053; 80061; 84484; 85025; 85347; 93005; 93306; 93454; 96365; 96367; 96376; 99152; 99153; 99285; C1725; C1769; C1874; C1887; C1894; C9600; J1644; J2250; J3010; J3490; J7030; Q9967

== ENCOUNTER → 2023-06-06 13:22 | Outpatient (BNVA) | payer MEDICARE, SELFPAY | PROVIDERS: PCP Electrodiagnostic Medicine; Visit Provider Nurse Practitioner Family | DX: I25.10 Atherosclerotic heart disease of native coronary artery without angina pectoris (principal); I10 Essential (primary) hypertension; Z87.891 Personal history of nicotine dependence | CPT/HCPCS: 80048; 99214 ==

== ENCOUNTER 2023-06-16 05:55 | Outpatient (CLI) | payer MEDICARE, SELFPAY ==
[2023-06-16] VITALS (27 sets, daily range): BP systolic 114–172; BP diastolic 82–118; PULSE 59–79; RESP 17–35; TEMP 36.1–37.1; O2SAT 93–99; BMI 34.8
--- NOTE | 2023-06-16 06:00 | XACV_ITS ---
Ht: 185 cm Wt: 117 kg BSA: 2.49 m2 Gender: Male : 1955 Any Known Allergies: No known allergies Exam Priority: Routine Indication(s): - CAD Procedure(s): Procedure Description: Diagnostic procedure Procedure Description: PCI procedure Procedure Description: Drug Eluting Coronary Stent Procedure Description: Miscellaneous Procedure Description: ACT Procedure Description: Coronary Angiography Diagnostic Cath Status: Elective Diagnostic Findings * INDICATION: Staged PCI of Left circumflex artery. * Left Main has no significant disease. * Left Anterior Descending has luminal irregularities. * Right Coronary Artery not injected as it is staged PCI. * Proximal Circumflex to Proximal Circumflex: significant 80% stenosis, LAXMI: 3 flow. * First Obtuse Marginal Branch Segment: significant 80% stenosis, LAXMI: 3 flow. * Second Obtuse Marginal Branch Segment to Second Obtuse Marginal Branch Segment: obstructive 70% stenosis, LAXMI: 3 flow. * Coronary angiography shows right dominance. PCI Status: Elective PCI Indication: Staged PCI Interventional Findings * Proximal Circumflex to Proximal Circumflex: 80% stenosis treated with a AB TREK 2.50X12 RX BALLOON, and MDT R JENNIFER 3.5X18 KAYLEEN. 0% residual stenosis, LAXMI: 3 flow. * Second Obtuse Marginal Branch Segment to Second Obtuse Marginal Branch Segment: 70% stenosis treated with a AB TREK 2.50X12 RX BALLOON, and MDT R JENNIFER 2.5X22 KAYLEEN. 0% residual stenosis, LAXMI: 3 flow. * Proximal Circumflex to Proximal Circumflex: 80% stenosis treated with a AB TREK 2.50X12 RX BALLOON, and MDT R JENNIFER 3.5X18 KAYLEEN. 0% residual stenosis, LAXMI: 3 flow. * Second Obtuse Marginal Branch Segment to Second Obtuse Marginal Branch Segment: 70% stenosis treated with a AB TREK 2.50X12 RX BALLOON, and MDT R JENNIFER 2.5X22 KAYLEEN. 0% residual stenosis, LAXMI: 3 flow. * Procedure detail: We engaged left main artery with XB 3.5 guide catheter. IV heparin was administered to maintain anticoagulation. 0.014 run-through guidewire was used to cross the proximal left circumflex artery and was put in distal OM 2. OM 2 was a large sized vessel and was noted to have more significant disease with a guide catheter injection. We predilated OM 2 stenosis with 2.5 x 12 mm semicompliant balloon. Same balloon was used to predilate proximal left circumflex artery territory. We first put 2.5 x 22 mm resolute [place] drug-eluting stent in OM 2. This was followed by placement of 3.5 x 18 mm resolute Jennifer drug-eluting stent in proximal left circumflex artery. At this time final angiogram was performed that showed excellent stent expansion, no residual stenosis and LAXMI-3 flow. OM1 was a medium sized vessel and was decided to treat medically.. Conclusions 1. Severe proximal left circumflex artery stenosis s/p PCI with 1 stent. Severe OM 2 stenosis post PCI with 1 stent. OM1 is small to medium sized vessel with significant stenosis. Will be medically treated.. 2. Proximal Circumflex to Proximal Circumflex was treated with a Balloon, and Drug Eluting Stent. 3. Second Obtuse Marginal Branch Segment to Second Obtuse Marginal Branch Segment was treated with a Balloon, and Drug Eluting Stent. Recommendations * Continue dual antiplatelet therapy for at least 1 year. * High intensity statin therapy. * Cardiology follow-up in 4 weeks. Interventional RX Recommendation: PCI w/o planned CABG Diagnostic RX Recommendation: PCI w/o planned CABG Anticoagulation: Heparin Pressures Phase:Rest AO : 114 / 88 ( 101 ) @ 7:45:00 AM 99 / 83 ( 92 ) @ 7:55:00 AM 115 / 92 ( 104 ) @ 7:55:00 AM Clinical Evaluation EBL: 5mL-10mL Procedural Details Procedure Consent Obtained. Pre-Procedure Time Out. Identified patient by full name and date of as verbalized by the patient/guarantor. Does the consent match the physician's order: Yes. Accurate & Complete Informed Consent: Yes. Inpatient/Outpatient History & Physical on Chart: Yes. If H&P is completed, is and addenduem needed: No; If yes, is the addendum complete: N/A. Visualize and Verify Site with Patient/Guarantor: N/A. Relevant Radiology Images available: N/A. The risks, benefits, and alternatives of sedation and/or procedure were discussed by physician. The patient agrees to continue. Procedure started. [facility] Clinical Fraility Score: 3: Managing Well. Sewer Tapper Indications: Stable Known CAD; Staged PCI of Circumflex. Chest Pain Symptom Assessment: Asymptomatic. Cardiovascular Instability: No, stable. Correct patient, site and procedure confirmed by cath team. Current diagnosis: Stable known CAD; Staged PCI of the circumflex. PERRLA. Strong, equal hand horse racetrack manager bilaterally. Lungs clear x 5 lobes. IV Site on Arrival: 18 gauge in the right anticubital. IV Fluids: 0.9% NaCl at KVO. 0 mL infused prior to laborer petroleum refinery. Pre Procedural Pulses: bilateral dorsalis pedis was 3+. Pre Procedural Pulses: bilateral posterior tibial was 3+. Pre Procedural Pulses: bilateral radial was 3+. Oxygen started at 3liters/min via nasal canula. Right groin and right radial was prepped with chloroprep then draped in the usual sterile fashion. Baseline sample Acquired. HR: 80 BPM. Physician notified. Current Diagnosis : Chest Pain. Physician arrived. Physician scrubbed in. Family updated by MD prior to arrival to laborer petroleum refinery. Immediate Pre-Procedure Time Out. Correct Patient: Yes; Correct Procedure: Yes; Correct Site: Yes; Correct Patient Position: Yes; Correct Supplies: Yes; Dried Flammable Prep: Yes; Blood Products Available: N/A;. Lidocaine 1% infiltrated to the right radial. Inventory is CRD 6 FR XB 3.5 GUIDE. Arterial access obtained. 6 israeli XB 3.5 guide catheter was inserted over the wire. Guide seated in the LCS. Runthrough guidewire was advanced through the guide catheter to lesion in the prox Circ. Guidewire advanced across lesion in the OM2. Inflation number : 1 A AB TREK 2.50X12 RX BALLOON was prepped and advanced across the 2nd Ob Ynes , then inflated to 8 ALISSA for 0:14 seconds. Results checked. Inflation number: 2 The AB TREK 2.50X12 RX BALLOON was reinflated across the 2nd Ob Ynes, to 8 ALISSA for 0:10 seconds. Inflation number: 1 The AB TREK 2.50X12 RX BALLOON was reinflated across the Prox CX, to 8 ALISSA for 0:14 seconds. Balloon out. Results checked. Inflation Number : 3 A MDT R JENNIFER 2.5X22 KAYLEEN -Lot Number# [id number] was prepped and advanced across the 2nd Ob Ynes. The stent was deployed at 12 ALISSA for 0:16 seconds. EXP 06/30/25. Results checked. Stent ballon out over wire. Inflation Number : 2 A MDT R JENNIFER 3.5X18 KAYLEEN -Lot Number# [id number] was prepped and advanced across the Prox CX. The stent was deployed at 12 ALISSA for 0:17 seconds. EXP 10/19/25. Stent balloon out over the wire. Results checked. ACT drawn. Results Out of range High seconds. Therapeutic limits - pre-heparin administration 90-150 seconds and monitoring heparin during a vascular procedure >250 seconds. Physician review of films. Runthrough wire out. Results checked. Guide catheter out over the wire. Physician scrubbed out. A TR Band was successful obtaining hemostatsis at the Right Radial artery insertion site. TR band placed. Hemostasis obtained. Post Procedure: Pulses reassessed and unchanged. PERRLA. Strong, equal hand horse racetrack manager bilaterally. No VTE prophylaxis required. Medication waste: Lidocaine- 2 ml Nitro- 49.8 mg Versed- 1 mg Fentanyl- 50 mcg Heparin. Total IV fluids: 50 mL. Fluoro: 7:07. Contrast type used: Omnipaque 300 mg/mL, 150 mL bottle. [id number] ml. Post-op diagnosis: Severe proximal circumflex and OM 2 stenosis status post 2 drug eluting stents. Complications: None. Estimated blood loss: 5mL-10mL. Responsiveness - Normal response to verbal stimuli; alert and oriented, PERRLA. Airway - Unaffected, no intervention required; spontaneous ventilation. Circulation: W/N/L, pulses unchanged. Nausea/Vomiting: No. Procedure completed. Patient transferred by wheelchair to ICU. Vital chart was stopped. Access Site Site: Right Radial artery Sheath Size: 6 Fr Hemostasis Method: TR Band Hemostasis Success: Successful Procedure Medications Start: 7:39 AM Stop: 7:39 AM Medication: Versed Amount: 1 mg Route: I.V. Start: 7:39 AM Stop: 7:39 AM Medication: Fentanyl Amount: 50 mcg Route: I.V. Start: 7:44 AM Stop: 7:44 AM Medication: Heparin Amount: 58994 units Route: I.V. Start: 7:56 AM Stop: 7:56 AM Medication: Heparin Amount: 1000 units Route: I.V. I, the attending physician, have reviewed and verified all procedure medications. Yes, all medications given per verbal order History/Risk Factors Hypertension: Yes Dyslipidemia: Yes Peripheral Arterial Disease (PAD): No Myocardial Infarction (CT): Yes Obesity: No Renal Disease: No Tobacco Use: Former Prior Interventions PCI: Yes CABG: No Valve Surgery: No Date of PCI: 05/25/2023 Report Signatures Finalized by Kunal Gottlieb MD on 06/25/2023 02:31 PM
[2023-06-16 06:24] LABS: Basophils # 0.1 10^3/uL (0.0-0.1); Eosinophils # 0.2 10^3/uL (0.0-0.8); Eosinophils % 2.4 %; Hematocrit 42.7 % (37-53); Lymphocytes # 1.1 10^3/uL (0.8-4.8); Mean Corpuscular HGB Conc 33.7 g/dL (30-55); Mean Corpuscular Hemoglobin 30.1 pg (27-33); Mean Corpuscular Volume 89.3 fl (82-101); Mean Platelet Volume 10.3 fL (7.4-10.4); Monocytes # 0.6 10^3/uL (0.2-0.9); Neutrophils % 70.3 %; Nucleated Red Blood Cells % 0 %; Platelet Count 252 10^3/cmm (157-399); Red Blood Count 4.78 10^6/uL (3.85-5.65); Red Cell Distribution Width 11.9 % (12.1-15.1); White Blood Count 6.25 10^3/uL (3.29-11.43)
[2023-06-16] MEDS: diphenhydrAMINE 50 mg Capsule PO (06:31)
[2023-06-16 06:44] LABS: Anion Gap 12.5 (5-19); Blood Urea Nitrogen 12 mg/dL (8-23); Calcium 9.5 mg/dL (8.5-10.5); Carbon Dioxide 28 mmol/L (22-29); Chloride 101 mmol/L (98-107); Glomerular Filtration Rate 74.3 mL/min (90-130); Glucose 127 mg/dL (65-115); Osmolality Calculated 285 mOsm/kg (285-295); Potassium 4.5 mmol/L (3.5-5.1); Sodium 137 mmol/L (136-145)
--- NOTE | 2023-06-16 07:35 | W.PM.OPSUD ---
Surgery/Procedure H&P Update DATE OF PROCEDURE: June 16, 2023 DATE H&P PERFORMED: 06/06/23 H&P UPDATE INFORMATION: I have reviewed H&P completed within last 30 days, I have examined patient prior to procedure and No changes to prior documentation PREOP DIAGNOSIS: Staged PCI of left circumflex artery PRIMARY INDICATION FOR PROCEDURE: Staged PCI of left circumflex artery PLANNED PROCEDURE: Operation Date: 06/16/23 07:00 Proposed Procedures p [facility] 50757,I25.10(Left) - Kunal Gottlieb M.D PATIENT REASSESSED PRIOR TO SEDATION, WITH NO CHANGE NOTED: Yes PHYSICAL EXAM: alert, oriented x 3, clear to auscultation bilaterally and regular rate & rhythm AIRWAY EVAL/ANESTHESIA PLAN: normal airway, ASA III, Local Anesthesia, Risks, benefits & alternatives of sedation and/or procedure discussed and Patient agrees to continue as planned
[2023-06-16] MEDS: sodium chloride 0.9% 1,000 ML 100 ML IV ×2 (08:35→18:29)
--- NOTE | 2023-06-16 08:45 | PC.NURSE ---
Pt arrives to ICU from label folder TR band noted on right wrist. Pulse palpable. NO hematoma or bleeding noted at site. IV noted in Right AC patent and infusing NS. NO Cp, palpitations, dizziness or nausea per pt.
--- NOTE | 2023-06-16 11:00 | PC.NURSE ---
TR removal complete. NO hematoma, bleeding noted at site. Bioclusive dressing applied.
[2023-06-16] MEDS: metoprolol tartrate 50 mg Tablet 25 MG PO (17:11)
--- NOTE | 2023-06-16 18:32 | PC.NURSE ---
Shift summary: No issues with right wirst. No bleeding, hematomas noted. Pt has remained in sinus rhtyhm on monitor. NO ectopy noted. No complaints of chest pain, dizziness, etc. this shift. He has ate his meals well. 1150ml of clear pale yellow urine noted this shift.
[2023-06-16] MEDS: atorvastatin 40 mg Tablet 80 MG PO (21:01)
--- NOTE | 2023-06-16 22:21 | PC.NURSE ---
Assumed care of the pt at this time.
[2023-06-17] VITALS (8 sets, daily range): BP systolic 115–163; BP diastolic 65–103; PULSE 66–100; RESP 16–20; TEMP 36.9; O2SAT 92–98
[2023-06-17] MEDS: sodium chloride 0.9% 1,000 ML 100 ML IV (04:20)
[2023-06-17 05:13] LABS: Basophils # 0.1 10^3/uL (0.0-0.1); Basophils % 0.9 %; Eosinophils # 0.1 10^3/uL (0.0-0.8); Eosinophils % 2.4 %; Hematocrit 40.1 % (37-53); Lymphocytes # 0.8 10^3/uL (0.8-4.8); Mean Corpuscular HGB Conc 33.7 g/dL (30-55); Mean Corpuscular Hemoglobin 29.7 pg (27-33); Mean Corpuscular Volume 88.1 fl (82-101); Mean Platelet Volume 10.9 fL (7.4-10.4); Monocytes # 0.5 10^3/uL (0.2-0.9); Monocytes % 9.2 %; Neutrophils # 4.33 10^3/uL (1.8-7.7); Nucleated Red Blood Cells % 0 %; Platelet Count 195 10^3/cmm (157-399); Red Blood Count 4.55 10^6/uL (3.85-5.65); Red Cell Distribution Width 11.9 % (12.1-15.1); White Blood Count 5.85 10^3/uL (3.29-11.43)
[2023-06-17 05:30] LABS: Anion Gap 14.6 (5-19); Blood Urea Nitrogen 12 mg/dL (8-23); Calcium 9.1 mg/dL (8.5-10.5); Carbon Dioxide 25 mmol/L (22-29); Chloride 102 mmol/L (98-107); Glomerular Filtration Rate 83.9 mL/min (90-130); Glucose 159 mg/dL (65-115); Osmolality Calculated 287 mOsm/kg (285-295); Potassium 4.6 mmol/L (3.5-5.1); Sodium 137 mmol/L (136-145)
[2023-06-17] MEDS: aspirin 81 mg EC Tablet PO (08:30)
[2023-06-17] MEDS: losartan 50 mg Tablet 25 MG PO (08:30)
[2023-06-17] MEDS: clopidogrel 75 mg Tablet PO (08:30)
[2023-06-17] MEDS: metoprolol tartrate 50 mg Tablet 25 MG PO (08:33)
--- NOTE | 2023-06-17 08:38 | PM.DCS ---
Discharge Providers Date of Admission: June 16, 2023 Date of Discharge: June 17, 2023 Attending Provider at Admission: Kunal Gottlieb MD Attending Provider at Discharge: Kunal Gottlieb M.D Primary Care Provider: Neel Gautam DO Reason for Visit Reason for Visit: I25.10 Brief History: 67-year-old man with past medical history of CAD and had recent STEMI when RCA was revascularized. Here for staged PCI of left circumflex artery. Hospital Course Hospital Course Patient underwent successful revascularization of proximal LCx with 1 stent. Also was noted to have significant to large sized OM 2 stenosis and had PCI of that with 1 stent as well. Was observed overnight in the hospital. He stayed stable and was discharged home in a stable condition on dual antiplatelet therapy and high intensity statin therapy. Physical Exam Narrative: GENERAL: Patient is alert, awake and oriented x3. [] NECK: No jugular vein distension. [] HEENT: No cyanosis. No icterus. No pallor. [] HEART: Regular S1 and S2. No murmur, rub or gallop. [] LUNGS: Clear to auscultate bilaterally. [] CENTRAL NERVOUS SYSTEM: Grossly nonfocal. [] EXTREMITIES: Lower extremities with 1+ edema bilaterally. 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 Routine Exams 06/16/23 06:00 Taken Laboratory Results WBC 5.85 10^3/uL (3.29-11.43) 06/17/23 04:33 RBC 4.55 10^6/uL (3.85-5.65) 06/17/23 04:33 Hgb 13.50 g/dL (11.27-16.99) 06/17/23 04:33 Hct 40.1 % (37-53) 06/17/23 04:33 MCV 88.1 fl (82-101) 06/17/23 04:33 MCH 29.7 pg (27-33) 06/17/23 04:33 MCHC 33.7 g/dL (30-55) 06/17/23 04:33 RDW 11.9 % (12.1-15.1) L 06/17/23 04:33 Plt Count 195 10^3/cmm (157-399) 06/17/23 04:33 MPV 10.9 fL (7.4-10.4) H 06/17/23 04:33 Neut % (Auto) 74.0 % 06/17/23 04:33 Lymph % (Auto) 13.0 % 06/17/23 04:33 Crenshaw % (Auto) 9.2 % 06/17/23 04:33 Eos % (Auto) 2.4 % 06/17/23 04:33 Baso % (Auto) 0.9 % 06/17/23 04:33 Neut # (Auto) 4.33 10^3/uL (1.8-7.7) 06/17/23 04:33 Lymph # (Auto) 0.8 10^3/uL (0.8-4.8) 06/17/23 04:33 Crenshaw # (Auto) 0.5 10^3/uL (0.2-0.9) 06/17/23 04:33 Eos # (Auto) 0.1 10^3/uL (0.0-0.8) 06/17/23 04:33 Baso # (Auto) 0.1 10^3/uL (0.0-0.1) 06/17/23 04:33 Nucleated RBC % (auto) 0 % 06/17/23 04:33 Nucleated RBCs # 0.0 /100WBC 06/17/23 04:33 Sodium 137 mmol/L (136-145) 06/17/23 04:33 Potassium 4.6 mmol/L (3.5-5.1) 06/17/23 04:33 Chloride 102 mmol/L (98-107) 06/17/23 04:33 Carbon Dioxide 25 mmol/L (22-29) 06/17/23 04:33 Anion Gap 14.6 (5-19) 06/17/23 04:33 BUN 12 mg/dL (8-23) 06/17/23 04:33 Creatinine 0.9 mg/dL (0.7-1.2) 06/17/23 04:33 GFR Calculation 83.9 mL/min (90-130) L 06/17/23 04:33 Glucose 159 mg/dL (65-115) H 06/17/23 04:33 Calculated Osmolality 287 mOsm/kg (285-295) 06/17/23 04:33 Calcium 9.1 mg/dL (8.5-10.5) 06/17/23 04:33 Vitals Last Vital Signs Temp 98.4 F 06/17/23 04:00 Pulse 71 06/17/23 08:00 Resp 16 06/17/23 08:00 BP 163/103 06/17/23 08:30 Pulse Ox 97 06/17/23 08:00 O2 Del Method Room Air 06/17/23 08:00 Discharge Plan Discharge Patient Disposition: Home Prescriptions: No Action valsartan 80 mg tablet 80 mg PO DAILY Qty: 30 1RF atorvastatin 40 mg Tablet 80 mg PO BEDTIME Qty: 90 3RF clopidogrel 75 mg Tablet 75 mg PO DAILY Qty: 90 3RF aspirin 81 mg Tablet,Delayed Release (Dr/Ec) 81 mg PO DAILY Qty: 90 3RF metoprolol tartrate 50 mg Tablet 25 mg PO BID Qty: 120 3RF nitroglycerin 0.4 mg Tablet, Sublingual 0.4 mg sublingual Q5M PRN (Reason: Chest Pain) Qty: 30 1RF Discharge Orders: Discharge Order (Routine); Ordered 06/17/23 Ordered By: Kunal Gottlieb Referrals: Emily Lopez FNP [Nurse Practitioner] - 06/29/23 2:00 pm ([facility], Emily Lopez APN Nurse ) Diet: Cardiac Activity: Increase activity as tolerated Patient Instructions: Heart Healthy Diet, Coronary Intravascular Stent Placement (DC), Coronary Angioplasty (DC), Chest Pain Stoplight, Post Angiogram Home Care Instructions Discharge Date/Time: 06/17/23 09:40 Discharge Attestations Time Spent in Discharge Care*: less than 30 min Quality Metrics Clinical Quality Measures [ No reported AMI, CVA or VTE this stay] Coding Level of Care Code Acute Code for Chg Ramsey
--- NOTE | 2023-06-17 09:38 | PC.NURSE ---
Discharge Note Patient discharged to home via private vehicle accompanied by . Discharge instructions reviewed with patient and/or hospital insurance representative. Mobile pharmacy medications and/or prescriptions provided. Belongings/home medications returned.
== END 2023-06-17 09:40 | disposition home or self-care (01) ==
LOC: CCL 06:05 → ICU 08:34
PROVIDERS: PCP Electrodiagnostic Medicine; Visit Provider Internal Medicine
DX: I25.10 Atherosclerotic heart disease of native coronary artery without angina pectoris (principal); I10 Essential (primary) hypertension; E78.5 Hyperlipidemia, unspecified; I25.2 Old myocardial infarction; Z87.891 Personal history of nicotine dependence; K21.9 Gastro-esophageal reflux disease without esophagitis; Z79.82 Long term (current) use of aspirin
CPT/HCPCS: 36415; 80048; 85025; 85347; 96361; 96365; 99152; 99153; C1725; C1769; C1874; C1887; C1894; C9600; J1644; J2250; J3010; J3490; J7030; Q0163; Q9967

== ENCOUNTER → 2023-06-29 14:21 | Outpatient (BNVA) | payer MEDICARE, SELFPAY | PROVIDERS: PCP Electrodiagnostic Medicine; Visit Provider Nurse Practitioner Family | DX: I25.10 Atherosclerotic heart disease of native coronary artery without angina pectoris (principal); I10 Essential (primary) hypertension; Z09 Encounter for follow-up examination after completed treatment for conditions other than malignant neoplasm; Z79.899 Other long term (current) drug therapy | CPT/HCPCS: 36415; 80048; 99214 ==

== ENCOUNTER → 2023-08-25 12:26 | Outpatient (BNVA) | payer MEDICARE, SELFPAY | PROVIDERS: PCP Electrodiagnostic Medicine; Visit Provider Internal Medicine | DX: I25.10 Atherosclerotic heart disease of native coronary artery without angina pectoris (principal); I10 Essential (primary) hypertension; I25.2 Old myocardial infarction; Z87.891 Personal history of nicotine dependence | CPT/HCPCS: 99214 ==

== ENCOUNTER → 2024-03-01 15:00 | Outpatient (BNVA) | payer MEDICARE, SELFPAY | PROVIDERS: PCP Electrodiagnostic Medicine; Visit Provider Internal Medicine | DX: I25.10 Atherosclerotic heart disease of native coronary artery without angina pectoris (principal); I10 Essential (primary) hypertension; Z87.891 Personal history of nicotine dependence; I25.2 Old myocardial infarction | CPT/HCPCS: 99214 ==

== ENCOUNTER → 2024-08-30 10:01 | Outpatient (BNVA) | payer MEDICARE, SELFPAY | PROVIDERS: PCP Electrodiagnostic Medicine; Visit Provider Nurse Practitioner Family | DX: I25.10 Atherosclerotic heart disease of native coronary artery without angina pectoris (principal); I10 Essential (primary) hypertension; I25.2 Old myocardial infarction; Z87.891 Personal history of nicotine dependence | CPT/HCPCS: 99214 ==

== ENCOUNTER 2025-02-11 13:11 | Outpatient (CLI) | payer MEDICARE, SELFPAY ==
--- NOTE | 2025-02-11 13:16 | CT_ITS ---
WS: [id number] CT ABDOMEN AND PELVIS WITH AND WITHOUT CONTRAST HISTORY: HEMATURIA TECHNIQUE: Unenhanced 5 mm axial imaging first performed through the abdomen. Post contrast imaging through the abdomen and pelvis. Oral contrast has not been provided. Sagittal and coronal reformats are submitted. All CT scans at [facility] use at least one of these dose optimization techniques: automated exposure control; mA and/or kV adjustment per patient size (includes targeted exams where dose is matched to clinical indication); or iterative reconstruction. CONTRAST: Omnipaque 350; 95 mL IV. DLP: 3128.99 mGy.cm COMPARISON: None available. Benign granuloma RIGHT lung base. No mass or nodule. Mild dependent changes at the bases. Heart is normal size. Dense calcification noted within the coronary arteries. RIGHT kidney: 11.4 cm in length. Minimal perinephric stranding. No obstruction. No calcifications in the renal pelvis or ureter. No enhancing mass. Tiny, 3 mm low-attenuation nodule in the central posterior kidney. LEFT kidney: 12.2 cm in length. Minimal perinephric stranding. No hydronephrosis. No renal calculi. Nonenhancing well-circumscribed mass exophytic from the posterior mid kidney measures 2.1 x 1.3 cm consistent with a cyst. No solid mass identified. Aorta: Mild atherosclerotic plaque. No obstruction or stenosis. Celiac axis, SMA and renal arteries arise normally with no obstruction. Urinary bladder: Urinary bladder is minimally distended. There is a soft tissue mass with a few small peripheral calcifications centered in the posterior RIGHT lateral urinary bladder. Mass measures 1.7 x 1.7 x 1.0 cm and is very closely associated with the distal RIGHT ureter. The RIGHT ureter enters the bladder without dilatation. The bladder is only minimally distended resulting in mild wall thickening. Mild prostate enlargement. Normal size liver and spleen. Hepatic and splenic granulomata. Gallbladder is normally distended with cholelithiasis and intraluminal mixed attenuation. Mild gallbladder wall thickening. No adrenal mass. Normal pancreas. Stomach is well distended with fluid. No GI tract obstruction. Normal appendix. Mild sigmoid diverticulosis without acute diverticulitis. No ascites, no mesenteric or retroperitoneal adenopathy. Bilateral fat-containing inguinal hernias. Prior anterior lumbar fusion at L5-S1 with interbody spacers. Additional LEFT posterior lumbar fusion. CT/CT abdomen pelvis wo/w [id number] IMPRESSION: 1. Well-circumscribed mass in the urinary bladder measures 1.7 x 1.7 x 1.0 cm. This mass is closely associated with the RIGHT ureteral orifice. The RIGHT ure ter is not being obstructed. The mass is just anterior to the ureteral orifice. Evaluation by urology recommended. Neoplasm is suspected. 2. No renal obstruction or additional uroepithelial mass. 3. Cholelithiasis without acute cholecystitis. Stones and mixed attenuation in the gallbladder lumen. Consider evaluation by ultrasound to ensure the heterog eneity is all stones and not a soft tissue component. 4. LEFT renal cyst 2.1 x 1.3 cm.
[2025-02-11] MEDS: iohexol 350 mg/mL 500 mL Btl (per mL) IV (13:39)
== END 2025-02-11 13:12 | disposition home or self-care (01) ==
LOC: RAD 13:13
PROVIDERS: PCP Electrodiagnostic Medicine; Visit Provider Electrodiagnostic Medicine
DX: R31.9 Hematuria, unspecified (principal); N32.89 Other specified disorders of bladder; K80.20 Calculus of gallbladder without cholecystitis without obstruction; N28.1 Cyst of kidney, acquired; R16.2 Hepatomegaly with splenomegaly, not elsewhere classified; K57.30 Diverticulosis of large intestine without perforation or abscess without bleeding; K40.90 Unilateral inguinal hernia, without obstruction or gangrene, not specified as recurrent; Z98.1 Arthrodesis status; Z96.60 Presence of unspecified orthopedic joint implant; M43.26 Fusion of spine, lumbar region
CPT/HCPCS: 74178

== ENCOUNTER → 2025-03-04 13:35 | Outpatient (BNVA) | payer MEDICARE, SELFPAY | PROVIDERS: PCP Electrodiagnostic Medicine; Visit Provider Internal Medicine | DX: I25.10 Atherosclerotic heart disease of native coronary artery without angina pectoris (principal); I10 Essential (primary) hypertension; Z87.891 Personal history of nicotine dependence; I25.2 Old myocardial infarction | CPT/HCPCS: 99214 ==